=== PATIENT | male | born 1955 | race Caucasian/White ===

== ENCOUNTER 2021-04-11 10:00 | Observation (INO) ==
--- NOTE | 2021-03-21 08:34 | PAT Medication Instructions ---
Medication Instructions Date of Service March 21, 2021 Home Medications aspirin [Aspir-81] 81 mg PO QAM cyanocobalamin (vitamin B-12) [Vitamin B-12] 1,000 mcg PO QAM glipizide 10 mg PO QPM losartan-hydrochlorothiazide 1 tab PO QAM tamsulosin [Flomax] 0.4 mg PO QAM acetylcysteine 600 mg PO BID albuterol 90 mcg INHALATION QID PRN atorvastatin 40 mg PO HS cholecalciferol (vitamin D3) [Vitamin D3] 50 mcg PO DAILY fluticasone propionate [Flovent Diskus] 1 inh INHALATION BID metformin 1,000 mg PO BID metoprolol tartrate 25 mg PO BID DO NOT take the morning of surgery cyanocobalamin (vitamin B-12) [Vitamin B-12] 1,000 mcg PO QAM losartan-hydrochlorothiazide 1 tab PO QAM acetylcysteine 600 mg PO BID cholecalciferol (vitamin D3) [Vitamin D3] 50 mcg PO DAILY metformin 1,000 mg PO BID Take morning of surgery With a small sip of water, OTHERWISE NOTHING TO EAT OR DRINK AFTER MIDNIGHT: aspirin [Aspir-81] 81 mg PO QAM (continue as normal unless told otherwise by surgeon) tamsulosin [Flomax] 0.4 mg PO QAM albuterol 90 mcg INHALATION QID PRN (use if needed; please bring rescue inhaler with you to hospital day of surgery if possible) fluticasone propionate [Flovent Diskus] 1 inh INHALATION BID metoprolol tartrate 25 mg PO BID Take evening before surgery glipizide 10 mg PO QPM acetylcysteine 600 mg PO BID albuterol 90 mcg INHALATION QID PRN (if needed) atorvastatin 40 mg PO HS fluticasone propionate [Flovent Diskus] 1 inh INHALATION BID metformin 1,000 mg PO BID metoprolol tartrate 25 mg PO BID Other Notes If you have any questions please call us at [phone] or [phone] or [phone] or [phone]
--- NOTE | 2021-03-25 14:27 | Anesthesiology Consultation ---
Date of Service March 25, 2021 Assessment & Plan (1) Encounter for pre-operative examination: - COVID screening: Per assessment on 03/25: Travel screen negative, no known COVID-19 positive contacts or current COVID-19 related symptoms. Patient vaccinated. Surgeon arranging preop COVID testing. Awaiting results. - Check BSG AM DOS - S/P Repair of torn left biceps tendon repair (06/20/18): LMA# 5.0 unique at [facility] - Cardiology office visit (12/07/20): "He has a history of post-operative atrial fibrillation. Amiodarone was stopped midNovember. We ordered a 21-day Holter, which he was able to tolerate for 16 days (stopped due to skin irritation). There were no episodes of atrial fibrillation noted on the monitor. At this juncture, it is reasonable to stop the warfarin. I did advise he let us know if he develops any palpitations as we could want to again order a monitor to evaluate for AF.. Blood pressure continues to be elevated. He does check it regularly at home and it has been much better there, typically running 1 30-1 40 systolic. Will not make any changes today. If it continues to be elevated, could consider changing metoprolol to carvedilol." F/U 12-14 months recommended. Most recent echo received was from prior to AVR 05/2020. Will request updated echo if post-op one not already done. Chart Review Chart Review: Patient seen in Pre Admission Testing Teaching & Discussion Pre-Anesthesia Teaching/Discussion Notes: Instructed NPO after midnight before surgery,except medications with 15 cc of water. Medication instructions provided according to the PAT guidelines. History Surgery Operation Date: 04/11/21 11:10 Proposed Procedures p Left Total Hip Arthroplasty - Edmund Sanders MD Height/Weight Height: 5 ft 9.5 in Weight: 108.9 kg Allergies Allergy/AdvReac Type Severity Reaction Status Date / Time cefuroxime [From Ceftin] Allergy Mild Rash Verified 03/18/21 08:25 ketorolac [From Toradol] Allergy Mild Lm Verified 03/25/21 14:37 Chris Syndrome adhesive Allergy Rash Verified 03/25/21 14:37 Medications Home Medications Medication Instructions Recorded Confirmed Last Taken aspirin [Aspir-81] 81 mg PO QAM 06/19/18 03/18/21 06/19/18 05:00 cyanocobalamin (vitamin B-12) 1,000 mcg PO QAM 06/19/18 03/18/21 06/18/18 05:00 [Vitamin B-12] glipizide 10 mg PO BID 06/19/18 03/25/21 06/19/18 05:00 losartan-hydrochlorothiazide 1 tab PO QAM 06/19/18 03/18/21 06/19/18 05:00 tamsulosin [Flomax] 0.4 mg PO QAM 06/19/18 03/18/21 06/20/18 08:00 albuterol 90 mcg INHALATION QID PRN 03/18/21 03/18/21 Unknown atorvastatin 40 mg PO HS 03/18/21 03/18/21 Unknown cholecalciferol (vitamin D3) 50 mcg PO DAILY 03/18/21 03/18/21 Unknown [Vitamin D3] fluticasone propionate [Flovent 1 inh INHALATION BID 03/18/21 03/18/21 Unknown Diskus] metformin 1,000 mg PO BID 03/18/21 03/18/21 Unknown metoprolol tartrate 25 mg PO BID 03/18/21 03/18/21 Unknown Zyrtec 1 tab PO DAILY 03/25/21 03/25/21 Unknown acetylcysteine [NAC] 600 mg PO BID 03/25/21 03/25/21 Unknown Past Medical History Medical History Aortic valve disease s/p AVR 2/2 aortic stenosis (05/2020), follows with [facility] ASCVD (arteriosclerotic cardiovascular disease) Incidental finding on remote chest CT per cardiology records Asthma Allergy induced, stable Atrial fibrillation Post-operative AVR (05/2020), 16 day holter monitor done 2020 which showed no episodes of a. fib therefore warfarin was discontinued by cardiology at 12/07/20 office visit Diabetes mellitus, type 2 NIDDM Hypertension Obesity Osteoarthritis Exercise / Class Metabolic Activity II 4-5 Yardwork/Stairs/Walk up hill (one FS (no CP, no SOB)) Past Surgical History Surgical History History of arthroscopy of left shoulder RCR History of arthroscopy of right shoulder Hx of aortic valve replacement 05/2020 Hx of cataract surgery R/L Hx of elbow surgery Left tennis elbow Hx of shoulder surgery Repair of torn left biceps tendon repair (06/20/18): LMA# 5.0 unique at [facility] Hx of total hip arthroplasty Right Past Anesthesia History No Hx of Anesthesia Complications and Other (Post-op a. fib with AVR (05/2020)) History of PONV No Hx of PONV and Hx of Motion Sickness (+ ships) Social History Smoking Status: Never smoker Do You Dip or Chew Tobacco: No Hx Alcohol Use: No Hx Substance Use: No substance use type: does not use Review of Systems Chronic cough x years felt allergy related. Patient denies chest pain, shortness of breath, dyspnea on exertion, fever, chills, wheezing, palpitations. Physical Exam Vital Signs VITALS BP 104/65 P 92 TEMP SP02 94%RA RESP 16 PHYSICAL Full cervical extension range of motion. Full TMJ range of motion. TMD 3 finger breaths Mallampati Score 1 Dentition: upper partial Lungs: clear throughout to auscultation Cardiac: regular rate and rhythm, distant heart sounds Spine: normal Carotid arteries: negative bruit Extremities: no edema Lab Results Anesthesia Preop Results Results Anesthesia Widget: WBC 8.56 K/uL (4.8-10.8) 03/25/21 Hgb 14.5 g/dL (14.0-18.0) 03/25/21 Hct 42.5 % (42-52) 03/25/21 Plt 262 K/uL (130-400) 03/25/21 Na 138 mmol/L (136-145) 03/25/21 K 4.4 mmol/L (3.5-5.1) 03/25/21 Cl 105 mmol/L (98-107) 03/25/21 CO2 29 mmol/L (21-32) 03/25/21 BUN 24 mg/dl (7-18) H 03/25/21 Creat 1.15 mg/dl (0.6-1.4) 03/25/21 Glucose Level 236 mg/dl (70-99) H 03/25/21 PT 10.5 Seconds (9.0-12.0) 03/25/21 PTT 26.8 Seconds (21.0-31.0) 03/25/21 INR 1.0 (0.9-1.1) 03/25/21 HA1c 10.2 % (4.5-5.6) H 03/25/21 Blood Type O Positive 03/25/21 Antibody Screen NEGATIVE 03/25/21 Lab Comments: Surgeon's office made aware of significantly elevated hgba1c Testing Electrocardiogram Date: 07/20/20 Sinus rhythm at [address]/T wave abnormality. Chest X-Ray Date: 03/25/21 FINDINGS: Cardiac silhouette is upper limits of normal in size. Prior median sternotomy. No pneumothorax, pleural effusion, airspace consolidation or overt pulmonary edema. Mild right hemidiaphragmatic elevation. Degenerative changes of the shoulders and spine. IMPRESSION: No acute process.
[~2021-04-11 10:00] MED LIST: ACETAMINOPHEN 500 MG TAB PO SCH; BUPIVACAINE 0.5 % 5 MG/1 ML PF 10ML VIAL ONE; FAMOTIDINE 20 MG TAB PO SCH; GABAPENTIN 300 MG CAP PO SCH; METOCLOPRAMIDE HCL 10 MG TABLET PO SCH; Scopolamine 1 MG TDSY TD SCH; TRANEXAMIC ACID 1,000 MG **IV Intra-op IV SCH
[2021-04-11] MEDS ORDERED: LACTATED RINGER'S 1,000 ML IV SCH (10:45)
--- NOTE | 2021-04-11 10:57 | History & Physical Bridge Note ---
Date of Service April 11, 2021 History & Physical Bridge Note I have examined the patient, reviewed the History & Physical and in the interval since the performance of the History & Physical I have noted the following changes of clinical significance: no changes noted
[2021-04-11] MEDS ORDERED: ceFAZolin 2,000 MG/15 ML IV PUSH IV ONE (11:03)
[2021-04-11] MEDS ORDERED: BUPIVACAINE/EPINEPHRINE 0.5% MPF 1:200,000 30 ML VIAL ONE (11:27)
[2021-04-11] MEDS ORDERED: ATROPINE SULFATE 0.1 MG/ML 10ML SYR IV PRN (11:34)
[2021-04-11] MEDS ORDERED: fentaNYL citrate 100 MCG/2 ML VIAL IV PRN (11:34)
[2021-04-11] MEDS ORDERED: ONDANSETRON INJ 2 MG/ML 2 ML VIAL IV PRN ×2 (11:34→15:06)
[2021-04-11] MEDS ORDERED: ePHEDrine sulfate 50 MG/ML AMP IV PRN (11:34)
[2021-04-11] MEDS ORDERED: HYDROmorphone INJ 2 MG/ML SYR/VIAL IV PRN (11:34)
[2021-04-11] MEDS ORDERED: LIDOCAINE 2% 2 ML VIAL/AMP(20MG/ML) INFIL ONE (11:40)
[2021-04-11] MEDS ORDERED: PROPOFOL IV EMULSION 10 MG/ML 20 ML VIAL IV ONE (11:40)
[2021-04-11] MEDS ORDERED: MIDAZOLAM HCL 1 MG/ML 2ML VIAL ONE (11:40)
[2021-04-11] MEDS ORDERED: PHENYLEPHRINE 100MCG/ML 5ML SYR ONE (14:39)
--- NOTE | 2021-04-11 14:44 | Operative Report ---
Post Operative Report Pre & Post Diagnosis Operation Date: 04/11/21 12:30 Pre-Op Diagnosis: Left Hip Osteoarthritis Post-Op Diagnosis: Left Hip Osteoarthritis I identified the patient and participated in the time-out.: Yes Procedure Operation Date: 04/11/21 12:30 Actual Procedures p Left Total Hip Arthroplasty(Left) - Edmund Sanders MD Surgeon Edmund Sanders MD Information Systems Director LISSETH Little Estimated Blood Loss 200 Findings Consistent with Post-Op Diagnosis Operative findings were advanced left hip DJD. He had grade 4 yior-ef-tylb disease the femoral head and acetabulum. Moderate-sized joint effusion. Large anterior acetabular osteophyte. Fluids 1500 cc. Specimens Left femoral head sent for pathology. Drains None. Anesthesia Type Spinal MAC Complications none Disposition Accompanied Patient To Recovery: Yes Indications Patient is 65-year-old gentleman well-known to me from previous hip replacement on his right side many years ago. Over the past 6 months he developed markedly increasing left hip pain discomfort. Been through extensive conservative treatment which has provided any benefit at all. Symptoms continue to progress and x-ray showed advanced progressive left hip arthritis. He elected proceed with total hip arthroplasty. Description of Procedure Operative implants consist of: 1. Biomet G7 size 56 mm acetabular shell. 2. [place] hole boom cat operator. 3. 6.5 cancellous acetabular screws 1 of 35 mm length 1 to 20 mm length. 4. Highly cross-linked polyethylene liner with a 56 mm outer diameter and 36 mm inner diameter. 5. DePuy Corail size 10 KLA femoral stem. 6. +5/36 mm ceramic articular ball. Patient was taken the operating, identified, placed on the operating table supine position but all contractors were properly padded. IV antibiotics tried by anesthesia team. A spinal anesthetic been implemented holding area. Kowalski catheter was placed in sterile fashion. The patient then placed in the right lateral decubitus position. An axillary roll was placed. A Stulberg hip positioner was used for positioning. Left hip and leg were then prepped and draped in usual sterile fashion. A posterior lateral approach to the left hip was then performed through a curvilinear incision centered over the greater trochanter. Sharp dissection was got through subcutaneous is done of the IT band gluteal fascia the IT band gluteal fascia then incised longitudinally in line with skin incision. The underlying greater bursa was excised. The piriformis and external rotators were then tagged and taken off the posterior aspect hip joint capsule. Great care was taken throughout the procedure protect the sciatic nerve at all times. A posterior capsulotomy was then performed leaving a large flap for later repair. Hip was internally rotated and dislocated. Femoral neck osteotomy cut was made with Final Cut 10 mm above the lesser trochanter. Femoral head was removed and sent for pathology. The femur was retracted anteriorly. Attention drawn the acetabulum. The acetabular labrum was excised. The pulmonary fat was excised. Sequential reaming the acetabular was then performed again with size 45 and progressing up to 55. I did reamed with a 56 reamer and then placed a 56 mm cup in about 40 degrees lateral opening and 20 degrees of anteversion. It was fixed with two 6.5 cancellous acetabular screws. A fairly large anterior osteophyte was removed. Trial liner was placed. Attention drawn the femur. The proximal femur was then with a cookie-cutter followed by canal finder. I then broached begin the size 8 and progressing up to 10. He had a very excellent cancellous envelope with a very sturdy bone. His canal distally was quite narrow. I did not feel like I could fully get a larger stem in distally. The calcar reamer was used smooth and off the calcar. Then trialed the hip and the +5 articular ball recreated leg lengths equal, soft tissue tension appropriate, and was fully stable in all positions. We elect to place these implants. All trial implants were removed. An apex hole boom cat operator was placed. Highly cross-linked polyethylene liner was placed. A 10 KLA femoral stem was impacted in position. A +5/36 mm ceramic articular ball was placed. Hip was located once again found to be stable. Attention drawn toward closing. Soft pulsatile lavage solution. We did inject locally with 60 cc of absent Marcaine with epinephrine. Patient did receive 1 g tranexamic acid preoperatively. The wound was once again irrigated. The posterior capsule and external rotators were then repaired through drill holes in the posterior trochanter with #2 Tycron suture. The IT band gluteal fascia then closed with #1 PDS suture in running fashion for subcutaneous tissue then closed with 2 layers the deep layer #1 Vicryl and suture in the subcutaneous tissue with 2 Dexon suture in a buried interrupted fashion the skin was closed skin gal. Leg was then cleaned dried and sterile dressing both Xeroform, 4 x 4's, sterile ABD pad and foam tape was applied. Patient then transferred to the recovery room in stable condition. Patient tolerated procedure well and there were no complications. Chavez Little, my physician medical assistant dermatology, was present for the entire procedure. His assistance was essential and required for appropriate patient positioning, prepping and draping, surgical exposure, performing the technical details of the operation, placement the implants, closure of the wound, and placement of the sterile bandage. I attest to the content of the Intraoperative Record and any orders documented therein. Any exceptions are noted below.
--- NOTE | 2021-04-11 14:59 | Anesthesiology Progress Note ---
Date of Service April 11, 2021 Anesthesia Post Procedure Vital Signs Vital Signs: Temp Pulse Pulse Resp BP Pulse Ox 04/11/21 14:50 36.4 C L 75 15 148/73 H 98 04/11/21 14:40 83 16 147/75 H 96 04/11/21 14:31 36.3 C L 103 H 14 106/74 94 04/11/21 10:43 36.7 C 63 18 170/71 H 96 Pain Intensity Right Hip: Pain Intensity: 5 Transfer of Care Handoff Completed per policy Notes Mental Status: alert / awake / arousable and participated in evaluation Patient Amnestic to Procedure: Yes Nausea / Vomiting: adequately controlled Pain: adequately controlled Airway Patency, RR, SpO2: stable & adequate BP & HR: stable & adequate Hydration State: stable & adequate Anesthetic Complications: no major complications apparent and Pt Satisfied with anesthetic care
[2021-04-11] MEDS ORDERED: HYDROmorphone INJ 0.5 MG/0.5 ML SYR IV PRN (15:06)
[2021-04-11] MEDS ORDERED: GLUCOSE 40% GEL 15 GM TUBE PO PRN (15:06)
[2021-04-11] MEDS ORDERED: CARBOHYDRATES FOR HYPOGLYCEMIA PO PRN (15:06)
[2021-04-11] MEDS ORDERED: NALOXONE HCL 0.4 MG/1 ML VIAL/CARP IV PRN (15:06)
[2021-04-11] MEDS ORDERED: METOCLOPRAMIDE HCL INJ 5 MG/ML 2 ML VIAL IV PRN (15:06)
[2021-04-11] MEDS ORDERED: ALUMINUM/MAGNESIUM SUSP 30 ML UDC PO PRN (15:06)
[2021-04-11] MEDS ORDERED: NO NSAIDS SCH (15:06)
[2021-04-11] MEDS ORDERED: GLUCOSE 10 TABS/TUBE PO PRN (15:06)
[2021-04-11] MEDS ORDERED: bisacodyL 10 MG SUPP PR PRN (15:06)
[2021-04-11] MEDS ORDERED: GLUCAGON FOR INJ 1 MG VIAL SQ PRN (15:06)
[2021-04-11] MEDS ORDERED: ALBUTEROL HFA 8 GM INHALER INH PRN (15:06)
[2021-04-11] MEDS ORDERED: DEXTROSE 50% 50 ML SYRINGE IV PRN (15:06)
[2021-04-11] MEDS ORDERED: MAGNESIUM HYDROXIDE SUSP 30 ML UDC PO PRN (15:06)
--- NOTE | 2021-04-11 15:08 | XRay Report ---
AP PELVIS, CROSSTABLE LATERAL LEFT HIP History: Left total hip arthroplasty. Degenerative arthritis. Postop. FINDINGS: The patient is status post a left total hip arthroplasty. The hardware is intact. No fractu re or dislocation. Skin gal are in place. A Kowalski catheter is noted. Evidence for prior right tot al hip arthroplasty. IMPRESSION: Left total hip arthroplasty. No evidence for hardware complication. ACT 112: Negative or not required by law. Electronically signed by: Onel Rodriguez M.D. 04/11/2021 3:06 PM
[2021-04-11] MEDS ORDERED: PHARMACY GLYCEMIC MGMT CONSULT PRN (15:29)
[2021-04-11] MEDS ORDERED: [UNRECOGNIZED DRUG - REMARK] SCH (16:00)
[2021-04-11] MEDS: SODIUM CHLORIDE 0.9% 1000ML 1,000 ML IV SCH ×2 (16:06→23:58)
[2021-04-11] MEDS: Scopolamine CHECK PATCH PLACEMENT SCH ×2 (16:07→23:58)
[2021-04-11] MEDS: ASCORBIC ACID 500 MG TAB PO SCH (17:18)
[2021-04-11] MEDS: INSULIN ASPART 100 UNITS/ML 3 ML PEN SC SCH ×2 (18:22→21:39)
--- NOTE | 2021-04-11 20:13 | Pharmacy Report ---
Pharmacy Glycemic Short Note 2 - Date of Service April 11, 2021 - Glycemic Short BSG Results (Last 24 hours): 04/11/21 04/11/21 04/11/21 10:23 14:35 17:10 POC Glucose 145 H 125 H 113 H OUTPATIENT ANTIDIABETIC REGIMEN: * Tresiba 10-16 units SC HS * Glipizide 10 mg PO BID * Metformin 1000 mg PO BID * HbA1c: 10.2% (03/25/21) ASSESSMENT: * GN is a 65 year old male POD #0 s/p left total hip arthroplasty * No perioperative steroids * Postop BSG of 125 mg/dL * Will order scaled basal with moderate Novolog parameters PLAN FOR INPATIENT GLYCEMIC CONTROL: * Hold outpatient oral diabetes medications * Basal insulin * Lantus 10-16 units SQ HS based on BSG (see EHR for details) * Bolus insulin * NovoLog per scale ACHS or Q6hrs while NPO * Goal Range: Low 110 mg/dL - High 140 mg/dL * Correction Factor: 25 mg/dL/unit * Nutritional / Prandial insulin per carb ratio of 1 unit per 8 grams CHO consumed PLAN FOR DISCHARGE: * tbd
[2021-04-11] MEDS ORDERED: TRANEXAMIC ACID / 0.7% NACL 1,000 MG/100 ML BAG IV SCH (20:45)
[2021-04-11] MEDS ORDERED: INSULIN GLARGINE SOLOSTAR 100 UNITS/ML 3 ML PEN SC SCH (21:00)
[2021-04-11] MEDS ORDERED: ATORVASTATIN 40 MG TAB PO SCH (21:00)
[2021-04-11] MEDS ORDERED: glipiZIDE 5 MG TAB PO SCH (21:00)
[2021-04-11] MEDS ORDERED: SENNA 8.6 MG TAB PO SCH (21:00)
[2021-04-11] MEDS ORDERED: NON-FORMULARY MEDICATION (Insulin Degludec [Tresiba Flextouch U-200] 200 unit/mL (3 mL) In SQ SCH (21:00)
[2021-04-11] MEDS ORDERED: ACETYLCYSTEINE 600 MG PO SCH (21:00)
[2021-04-11] MEDS: ASPIRIN 81 MG ECTAB PO SCH (21:38)
[2021-04-11] MEDS: DOCUSATE SODIUM 100 MG CAP PO SCH (21:39)
[2021-04-11] MEDS: METOPROLOL TARTRATE 25 MG TAB PO SCH (21:42)
[2021-04-11] MEDS: ACETAMINOPHEN 500 MG TAB PO SCH (21:43)
[2021-04-11] MEDS: traMADol HCL 50 MG TABLET PO PRN (21:44)
[2021-04-11] MEDS: ceFAZolin 2000MG 2,000 MG/15 ML SYR IV SCH (21:47)
[2021-04-12] MEDS: ceFAZolin 2000MG 2,000 MG/15 ML SYR IV SCH (05:51)
[2021-04-12] MEDS: ACETAMINOPHEN 500 MG TAB PO SCH ×2 (05:52→13:06)
[2021-04-12 06:44] LABS: Basophils # (auto) 0.01 K/uL (0-0.2); Basophils % (auto) 0.1 %; Eosinophils # (auto) 0.09 K/uL (0-0.5); Hematocrit (blood only) 36.5 % (42-52); Hemoglobin 12.1 g/dL (14.0-18.0); Immature Granulocytes # (auto) 0.01 K/uL (0.00-0.02); Immature Granulocytes % (auto) 0.1 %; Lymphocytes # (auto) 1.08 K/uL (1.2-3.4); Mean Corpuscular Hemoglobin 29.9 pg (25-34); Mean Corpuscular Hgb Conc 33.2 g/dL (32-36); Mean Corpuscular Volume 90.1 fL (80-100); Mean Platelet Volume 10.2 fL (7.4-10.4); Monocytes # (auto) 0.97 K/uL (0.11-0.59); Monocytes % (auto) 10.8 %; Neutrophils # (auto) 6.82 K/uL (1.4-6.5); Platelet Count 181 K/uL (130-400); RDW Coefficient of Variation 12.6 % (11.5-14.5); RDW Standard Deviation 41.8 fL (36.4-46.3); Red Blood Count 4.05 M/uL (4.7-6.1); White Blood Count 8.98 K/uL (4.8-10.8)
[2021-04-12 07:10] LABS: BUN Creatinine Ratio 16.7 (10-20); Calcium 8.1 mg/dl (8.5-10.1); Creatinine Clr Calc Pharmacy 80.7 ml/min; Est GFR (Non-African American) 69.9 ml/min; Potassium 4.4 mmol/L (3.5-5.1)
[2021-04-12] MEDS: ASCORBIC ACID 500 MG TAB PO SCH (08:56)
[2021-04-12] MEDS: ASPIRIN 81 MG ECTAB PO SCH (08:57)
[2021-04-12] MEDS: Scopolamine CHECK PATCH PLACEMENT SCH (08:57)
[2021-04-12] MEDS: DOCUSATE SODIUM 100 MG CAP PO SCH (08:58)
[2021-04-12] MEDS: METOPROLOL TARTRATE 25 MG TAB PO SCH (08:59)
[2021-04-12] MEDS ORDERED: LOSARTAN/HCTZ 50/12.5MG TAB PO SCH (09:00)
[2021-04-12] MEDS ORDERED: CYANOCOBALAMIN 500 MCG TABLET (VITAMIN B-12) PO SCH (09:00)
[2021-04-12] MEDS ORDERED: FLUTICASONE FUROATE 100MCG 14 PUFFS/INHALER INH SCH (09:00)
[2021-04-12] MEDS ORDERED: CHOLECALCIFEROL 1,000 UNITS 25 MCG TAB PO SCH (09:00)
[2021-04-12] MEDS ORDERED: CETIRIZINE HCL 10 MG TABLET PO SCH (09:00)
[2021-04-12] MEDS ORDERED: TAMSULOSIN HCL 0.4 MG CAP PO SCH (09:00)
[2021-04-12] MEDS ORDERED: MULTIVITAMIN TAB PO SCH (09:00)
[2021-04-12] MEDS: INSULIN ASPART 100 UNITS/ML 3 ML PEN SC SCH ×2 (09:04→13:07)
[2021-04-12] MEDS: traMADol HCL 50 MG TABLET PO PRN (10:24)
--- NOTE | 2021-04-12 12:57 | Progress Notes ---
DATE OF SERVICE: 04/12/2021 SUBJECTIVE: A 65-year-old gentleman now postop day 1 from a left total hip replacement. He is doing pretty well. Pain is controlled. Therapy has gone well. He just describes mostly soreness and sti ffness in his hip. Not feeling dizzy or lightheaded. OBJECTIVE: VITAL SIGNS: Temperature 36.7. Vital signs are stable. PHYSICAL EXAMINATION: GENERAL: Shows a pleasant middle-aged male. He is sitting up in his bedside chair, looks pretty com fortable. LUNGS: Clear to auscultation. HEART: Regular rate and rhythm. ABDOMEN: Soft, nontender, nondistended. EXTREMITIES: Grossly neurovascularly intact except as follows: Examination of the left hip reveals the dressing to be clean, dry and intact. Leg lengths are equal. Thigh is soft and supple. NEUROLOGIC: He is neurologically intact. LABORATORY DATA: Hemoglobin 12.1. Hematocrit 36.5. Electrolytes are stable. ASSESSMENT: A 65-year-old gentleman postoperative day 1 from a left hip replacement, doing well. Hi s pain is controlled. Hip is located. He is neurologically intact. Therapy went pretty well. PLAN: 1. DVT prophylaxis includes thigh-high TEDs, SCDs, and aspirin twice daily. 2. PT, OT, weightbear as tolerated. Left total hip protocol. 3. Pain control, doing well with current pain regimen. 4. Disposition: Plan to discharge to home with some home health likely later today if continues to d o okay in therapy and his pain is controlled. Job ID: [id number]
[2021-04-12] MEDS ORDERED: INSULIN GLARGINE SOLOSTAR 100 UNITS/ML 3 ML PEN SC SCH (21:00)
--- NOTE | 2021-04-15 13:01 | Discharge Summary ---
Date of Service April 15, 2021 Discharge Data Procedures Performed Operation Date: 04/11/21 12:30 Actual Procedures p Left Total Hip Arthroplasty(Left) - Edmund Sanders MD Hospital Course (1) Status post total hip replacement, left: This is a 65 year old patient admitted on 04/11/21 and underwent total hip arthroplasty. He tolerated the procedure well and there were no complications. Transferred to the PACU post op and later to the orthopedic floor for further care. He was given ancef for antibiotic prophylaxis. He was also given STEVAN stockings, SCDs, and aspirin for DVT prophylaxis. Hemoglobin, hematocrit, and vital signs were monitored during his hospital stay and remained stable. Did not require any blood transfusions. There were no complications during his hospital stay. By post op day #1 the patient was tolerating a diabetic diet, pain was reasonably controlled with oral pain medicine, and he was participating in physical therapy. On post op day #1 the patient was discharged home and set up with home health care. He was given printed discharge instructions including prescriptions for extra strength tylenol, aspirin, and tramadol. Continue physical therapy, weight bearing as tolerated. Continue hip precautions. Continue STEVAN stockings. Follow up approximately 2 weeks post op or sooner if there are problems or concerns. Coding Level of Care Code None Diagnoses Status post total hip replacement, left Z96.642
== END 2021-04-12 14:36 | disposition home health service (06) ==
LOC: ASU 10:00 → 3E 10:00